=== PATIENT | female | born 1995 | race Caucasian/White ===

== ENCOUNTER → 2017-11-09 17:49 | Outpatient (CLI) | payer OTHER, SELFPAY ==
[2017-11-09 20:25] LABS: Chlamydia Trachomatis by PCR POSITIVE (Negative); Neisserai gonorrhoeae by PCR Negative (Negative); Probe Check PASS; Sample Adequacy Control PASS; Specimen Processing Control PASS
== END ==
PROVIDERS: Family Provider Pediatrics; PCP Pediatrics; Visit Provider Obstetrics & Gynecology
DX: Z11.3 Encounter for screening for infections with a predominantly sexual mode of transmission (principal)
CPT/HCPCS: 87491; 87591

== ENCOUNTER → 2018-03-22 12:20 | Outpatient (CLI) | payer OTHER, SELFPAY ==
[2018-03-22 13:23] LABS: T4 Free Direct 0.93 ng/dL (0.76-1.46); Thyroid Stim Hormone (TSH) 1.33 uIU/mL (0.358-3.74)
[2018-03-22 20:35] LABS: Chlamydia Trachomatis by PCR Negative (Negative); Neisserai gonorrhoeae by PCR Negative (Negative); Probe Check PASS; Sample Adequacy Control PASS; Specimen Processing Control PASS
== END ==
PROVIDERS: Family Provider Nurse Practitioner; PCP Nurse Practitioner; Referring Provider Obstetrics & Gynecology; Visit Provider Obstetrics & Gynecology
DX: Z11.3 Encounter for screening for infections with a predominantly sexual mode of transmission (principal); E01.0 Iodine-deficiency related diffuse (endemic) goiter
CPT/HCPCS: 36415; 84439; 84443; 87491; 87591

== ENCOUNTER → 2018-06-22 18:10 | Outpatient (CLI) | payer OTHER, SELFPAY ==
[2018-06-22 13:34] VITALS: BMI 30.3
[2018-06-22 21:57] LABS: Chlamydia Trachomatis by PCR Negative (Negative); Neisserai gonorrhoeae by PCR Negative (Negative); Probe Check PASS; Sample Adequacy Control PASS; Specimen Processing Control PASS
== END ==
PROVIDERS: Family Provider Nurse Practitioner; PCP Nurse Practitioner; Referring Provider Nurse Practitioner Women's Health; Visit Provider Nurse Practitioner Women's Health
DX: Z11.3 Encounter for screening for infections with a predominantly sexual mode of transmission (principal)
CPT/HCPCS: 87491; 87591

== ENCOUNTER → 2018-07-20 14:04 | Outpatient (CLI) | payer OTHER, SELFPAY ==
[2018-07-20 13:48] VITALS: BMI 30.3
[2018-07-20 15:53] LABS: HIV - WCH Non-Reactive (Nonreactive)
[2018-07-20 19:00] LABS: Chlamydia Trachomatis by PCR Negative (Negative); Neisserai gonorrhoeae by PCR Negative (Negative); Probe Check PASS; Sample Adequacy Control PASS; Specimen Processing Control PASS
[2018-07-21 20:07] LABS: HCV Quant. RNA PCR HCV Not Detected IU/mL (.)
[2018-07-22 12:17] LABS: HSV 2 IgG < 0.91 index (0.00-0.90)
[2018-07-23 03:11] LABS: Rapid Plasmin Reagin (RPR) NONREACTIVE (NONREACTIVE)
== END ==
PROVIDERS: Family Provider Nurse Practitioner; PCP Nurse Practitioner; Referring Provider Nurse Practitioner Women's Health; Visit Provider Nurse Practitioner Women's Health
DX: Z11.3 Encounter for screening for infections with a predominantly sexual mode of transmission (principal)
CPT/HCPCS: 36415; 86592; 86695; 86696; 86703; 87491; 87522; 87591

== ENCOUNTER → 2018-08-02 09:41 | Outpatient (CLI) | payer OTHER, SELFPAY ==
[2018-07-20 13:48] VITALS: BMI 30.3
--- NOTE | 2018-08-02 09:45 | US_ITS ---
STUDY: ABDOMINAL ULTRASOUND - RIGHT UPPER QUADRANT REASON FOR VISIT: Female, 22 years old. Gastritis TECHNIQUE: Ultrasound evaluation of the right upper quadrant was performed with real-time and static morley-scale imaging. TECHNICAL QUALITY: Adequate. COMPARISON: None. FINDINGS: Liver: The liver measures 15.5 cm. There is normal echogenicity of the liver. The bile ducts are within normal limits. There is hepatic color flow. The direction of portal flow is hepatopetal. There is no demonstrated mass lesion. Gallbladder: Normal distended gallbladder. The gallbladder wall measures 3 mm. There is a negative sonographic Guevara's sign. There is no pericholecystic fluid. There are no gallstones. Common Bile Duct (C.B.D.): The common bile duct measures 2 mm. Pancreas: Normal size of the head, body and tail of the pancreas. There is normal echogenicity of the pancreas. There is no demonstrated pancreatic mass or cyst. Right Kidney: Normal size of the right kidney. The right kidney measures 10.5 x 4.7 x 4.4 cm. Normal renal cortex. The right cortex measures 1.4 cm. There is no demonstrated renal mass or cyst. There is no right hydronephrosis. US/Gallbladder IMPRESSION: Normal right upper quadrant ultrasound examination. Electronically Signed: Christoph Valdivia MD at 4:41 EDT , Service support ,
[2018-08-02 11:50] LABS: Ferritin 22 ng/mL (8-252); Iron 78 ug/dL (50-170); Iron Binding Capacity,Total 481 ug/dL (250-450)
== END ==
PROVIDERS: Family Provider Nurse Practitioner; PCP Nurse Practitioner; Referring Provider Nurse Practitioner; Visit Provider Nurse Practitioner
DX: K29.70 Gastritis, unspecified, without bleeding (principal); R71.8 Other abnormality of red blood cells
CPT/HCPCS: 36415; 76705; 82728; 83540; 83550

== ENCOUNTER → 2022-09-19 | Outpatient (CLI) | payer OTHER, SELFPAY ==
[2022-10-01 06:09] LABS: HPV APTIMA, High Risk Negative (Negative)
[2022-10-03 20:45] LABS: HPV Reflexed? YES, CHARGE PATIENT
== END | disposition home or self-care (01) ==
PROVIDERS: PCP Nurse Practitioner; Referring Provider Obstetrics & Gynecology; Visit Provider Obstetrics & Gynecology
DX: Z12.4 Encounter for screening for malignant neoplasm of cervix (principal)
CPT/HCPCS: 87624; 88175; G0145

== ENCOUNTER → 2023-07-02 | Outpatient (CLI) | payer OTHER, SELFPAY ==
[2023-07-02 16:33] LABS: HIV - WCH Non-Reactive (Nonreactive); Hepatitis C Antibody Non-Reactive (Nonreactive); Syphilis Antibodies Non-reactive
[2023-07-04 06:09] LABS: HSV 2 IgG < 0.91 index (0.00-0.90)
[2023-07-07 06:09] LABS: Chlamydia By Nucleic Acid AMP Positive (Negative); Gonococcus By Nucleic Acid AMP Negative (Negative)
== END | disposition home or self-care (01) ==
PROVIDERS: PCP Nurse Practitioner; Referring Provider Nurse Practitioner Women's Health; Visit Provider Nurse Practitioner Women's Health
DX: Z20.2 Contact with and (suspected) exposure to infections with a predominantly sexual mode of transmission (principal)
CPT/HCPCS: 36415; 86695; 86696; 86703; 86780; 86803; 87491; 87591